=== PATIENT | male | born 1955 | race Caucasian/White ===

== ENCOUNTER 2019-08-19 10:50 | Inpatient (IN) ==
[2019-08-19] MEDS ORDERED: CeFAZolin Syr 2,000MG/20 ML 2,000 MG/20 ML SYRINGE IVPB ONE (11:21)
[2019-08-19] MEDS ORDERED: Albuterol 2.5 MG/3 ML NEBULIZER IH ONE (11:22)
[2019-08-19] MEDS ORDERED: Gabapentin 300 MG CAPSULE PO ONE (11:29)
[2019-08-19] MEDS ORDERED: *HR* HYDROcodone/Acet 5/325 mg TABLET PO PRN (11:30)
[2019-08-19] MEDS ORDERED: Ringers Solution, Lactated 1,000 ML IVC SCH ×2 (11:30→15:54)
[2019-08-19] MEDS ORDERED: Morphine Sulfate 2 MG/ML SYRINGE IVP PRN (11:30)
[2019-08-19] MEDS ORDERED: Ondansetron 4 MG/2 ML VIAL ONE (12:06)
[2019-08-19] MEDS ORDERED: *HR* Succinylcholine 200 MG/10 ML VIAL IVP ONE (12:06)
[2019-08-19] MEDS ORDERED: *HR* FentaNYL (PF) 100 MCG/2 ML VIAL ONE ×2 (12:06→14:45)
[2019-08-19] MEDS ORDERED: Dexamethasone 4 MG/ML VIAL ONE (12:06)
[2019-08-19] MEDS ORDERED: Lidocaine -MPF 2% 2 ML VIAL ONE (12:06)
[2019-08-19] MEDS ORDERED: *HR* Propofol 200 MG/20 ML VIAL IVP ONE (12:06)
[2019-08-19] MEDS ORDERED: *HR* Rocuronium Bromide 50 MG/5 ML VIAL ONE (12:06)
[2019-08-19] MEDS ORDERED: *HR* Midazolam HCl 2 MG/2 ML VIAL ONE (12:06)
[2019-08-19] MEDS ORDERED: Lidocaine HCL 4 ML Topical Solution (Laryng-O-Jet Kit Sterile Pak) TP ONE (12:07)
[2019-08-19] MEDS ORDERED: Ropivacaine/PF 0.5% 30 ML VIAL ONE (12:37)
[2019-08-19] MEDS ORDERED: ROPIVACAINE/PF/NS 0.25% 1 EACH SYRINGE INTRAART ONE (12:37)
[2019-08-19] MEDS ORDERED: Ethanol\\Acetic Acid\\Na Ace\\Ben 1,000 ML IRRIG.SOLN IR ONE (13:28)
[2019-08-19] MEDS ORDERED: *HR* PHENYLEPHRINE 1,000 MCG/10 ML SYRINGE IVP ONE ×2 (13:50→14:19)
[2019-08-19] MEDS ORDERED: Naloxone 0.4 MG/ML INJ IVP PRN (15:54)
[2019-08-19] MEDS ORDERED: Sennosides 8.6 MG TABLET PO PRN (15:54)
[2019-08-19] MEDS ORDERED: Temazepam 15 MG CAPSULE PO PRN (15:54)
[2019-08-19] MEDS ORDERED: Ondansetron 4 MG/2 ML VIAL IVP PRN (15:54)
[2019-08-19] MEDS ORDERED: *HR* OxyCODONE Immed Rel 5 MG TABLET PO PRN (15:54)
[2019-08-19] MEDS ORDERED: MOM Conc 10 ML UD.LIQ PO PRN (15:54)
[2019-08-19] MEDS ORDERED: *HR* OxyCODONE/APAP 5/325 TABLET PO PRN (15:54)
[2019-08-19] MEDS ORDERED: D5% in Water 1,000 ML IVC PRN (15:54)
[2019-08-19] MEDS ORDERED: *HR* Dextrose 50 % in Water (Syg) 50 ML SYRINGE IVP PRN (15:54)
[2019-08-19] MEDS ORDERED: Dextrose Gel 15 GM/37.5 ML TUBE PO PRN ×2 (15:54)
[2019-08-19 16:07] LABS: Hemoglobin 13.8 g/dL (12.9-16.9)
[2019-08-19] MEDS: *HR* Metformin 500 MG TABLET PO SCH (16:56)
[2019-08-19] MEDS: Insulin LISPRO 300 UNITS/3 ML VIAL SQ SCH (16:57)
[2019-08-19] MEDS: *HR* Enoxaparin 30 MG/0.3 ML SYRINGE SQ SCH (16:58)
[2019-08-19] MEDS ORDERED: *HR* Enoxaparin 30 MG/0.3 ML SYRINGE SQ SCH (18:00)
[2019-08-19] MEDS ORDERED: Insulin LISPRO 300 UNITS/3 ML VIAL SQ SCH (21:00)
[2019-08-20 05:28] LABS: Hematocrit 41.3 % (37.5-50.1); Hemoglobin 13.5 g/dL (12.9-16.9)
[2019-08-20 05:52] LABS: BUN/Creatinine Ratio 30 (6-26); Blood Urea Nitrogen 31 mg/dL (8-23); Calcium 9.4 mg/dL (8.6-10.3); Carbon Dioxide 26 mEq/L (23-29); Chloride 98 mEq/L (98-107); Glucose 365 mg/dL (70-105); Osmolality,Calculated 301 (280-300); Sodium 135 mEq/L (136-145); eGFR For African Americans > 60 (> 60); eGFR For Non-African Americans > 60 (> 60)
[2019-08-20] MEDS: *HR* Enoxaparin 30 MG/0.3 ML SYRINGE SQ SCH (05:59)
[2019-08-20] MEDS ORDERED: GlipiZIDE 5 MG TABLET PO SCH (09:00)
[2019-08-20] MEDS ORDERED: *HR* Pioglitazone 15 MG TABLET PO SCH (09:00)
[2019-08-20] MEDS ORDERED: Metoprolol XL (24 HR) Succ 25 MG TAB.ER.24H PO SCH (09:00)
[2019-08-20] MEDS ORDERED: Aspirin Enteric Coated 81 MG Tablet PO SCH (09:00)
[2019-08-20 09:20] VITALS: BP 116/74
[2019-08-20] MEDS: Insulin LISPRO 300 UNITS/3 ML VIAL SQ SCH (09:21)
[2019-08-20] MEDS: *HR* Metformin 500 MG TABLET PO SCH (09:21)
== END 2019-08-20 12:16 | disposition home or self-care (01) | DRG 483 ==
LOC: SAMDAY 10:50 → 3NENU 15:50
PROVIDERS: ADMIT Orthopaedic Surgery; ATTEND Orthopaedic Surgery